=== PATIENT | male | born 1970 | race Caucasian/White ===

== ENCOUNTER 2022-09-19 23:25 | Emergency (ER) | payer OTHER ==
[~2022-09-19] VITALS: Ht 162.6 cm; Wt 54.4 kg
[2022-09-19 23:25] VITALS: BP 101/68
[2022-09-20 00:03] LABS: BASOPHILS # (AUTO) 0.1 K/uL (0.00-0.22); EOSINOPHILS # (AUTO) 0.1 K/uL (0-0.4); EOSINOPHILS % (AUTO) 1.5 % (0.0-4.0); HEMATOCRIT 43.2 % (36-52); HEMOGLOBIN 13.9 g/dL (12.0-18.0); LYMPHOCYTES # (AUTO) 1.5 K/uL (2.0-11.5); LYMPHOCYTES % (AUTO) 21.5 % (20.5-51.1); MEAN CORPUSCULAR HEMOGLOBIN 33 pg (27-31); MEAN CORPUSCULAR HGB CONC 32 g/dL (33-37); MEAN CORPUSCULAR VOLUME 102.3 fL (80-94); MONOCYTES # (AUTO) 0.6 K/uL (0.8-1.0); MONOCYTES % (AUTO) 8.1 % (1.7-9.3); NEUTROPHILS # (AUTO) 4.7 K/uL (1.8-7.7); NEUTROPHILS % (AUTO) 67.9 % (42.2-75.2); PLATELET COUNT (AUTO) 486 K/uL (140-450); RED BLOOD CELL COUNT(AUTO) 4.22 MIL/uL (4.20-6.10); RED CELL DISTRIBUTION WIDTH 19.1 % (11.6-13.7); WHITE BLOOD COUNT (AUTO) 6.9 K/uL (4.8-10.8)
[2022-09-20 00:18] LABS: ALBUMIN 2.7 g/dL (3.4-5.0); ANION GAP 9.1 (8-16); POTASSIUM 4.1 mmol/L (3.5-5.1); TOTAL BILIRUBIN 0.3 mg/dL (0.0-1.0)
--- NOTE | 2022-09-20 01:14 | NUR ---
Patient taken to bed 4.
--- NOTE | 2022-09-20 01:45 | NUR ---
BIBA FROM WITH C/O DIARRHEA WITH GEN WEAKNESS, HE WAS GIVEN NS 200 MLS PER HOUR O LER LHAND G #20, PATENT , INFUSING WELL.
[2022-09-20] MEDS ORDERED: AMOX1TAB8 PO (02:28)
[2022-09-20] MEDS ORDERED: AMOXIL/CLAVULANATE 875/125 MG 1 TAB PO ONE (02:30)
--- NOTE | 2022-09-20 03:51 | NUR ---
PT READY FOR DISCHARGE, CALLS TO PTS DAUGHTERS, NO ANSWERS, MESSAGES LEFT
--- NOTE | 2022-09-20 04:15 | NUR ---
Patient discharged with v/s stable. Written and verbal after care instructions given and explained. Patient alert, oriented and verbalized understanding of instructions. Wheel Chair Assisted with to car. All questions addressed prior to discharge. ID band removed. Patient advised to follow up with PMD. Rx of AMOXICILLIN given. Patient educated on indication of medication including possible reaction and side effects. Opportunity to ask questions provided and answered.
== END 2022-09-20 04:15 | disposition home or self-care (01) ==
LOC: MED 23:25
DX: K52.9 Noninfective gastroenteritis and colitis, unspecified (principal); E11.22 Type 2 diabetes mellitus with diabetic chronic kidney disease; N18.6 End stage renal disease; Z99.2 Dependence on renal dialysis; Z79.2 Long term (current) use of antibiotics
CPT/HCPCS: 36415; 71045; 80053; 82550; 82553; 83605; 83880; 85025; 87040; 99285